=== PATIENT | male | born 1990 | race Two or more races ===

== ENCOUNTER 2016-07-26 00:18 | Inpatient (IN) | payer MEDICAID ==
[~2016-07-26] VITALS: Ht 177.8 cm; Wt 113.6 kg
[2016-07-26 01:03] LABS: Basophils # (auto) 0.3 uL; Basophils % (auto) 2.6 % (0.0-2.0); Eosinophils # (auto) 0.1 uL; Eosinophils % (auto) 1.2 % (0.0-7.0); Hematocrit 46.9 % (41.0-53.0); Hemoglobin 15.5 g/dL (13.5-17.5); Lymphocytes # (auto) 2.8 uL; Mean Corpuscular Hemoglobin 28.1 pg (28.0-32.0); Mean Platelet Volume 7.5 fL (7.4-10.4); Monocytes % (auto) 9.9 % (0.0-12.0); Neutrophils # (auto) 5.9 uL; Neutrophils % (auto) 58.3 % (37.0-80.0); Platelet Count (auto) 360 10^3/uL (140-450); Red Cell Distribution Width 12.7 % (11.6-16.0); White Blood Cell 10.1 10^3/uL (4.4-10.8)
[2016-07-26 01:12] LABS: Urine Bilirubin Negative (Negative); Urine Color Yellow (Yellow); Urine Glucose Normal (Normal); Urine Ketone Negative (Negative); Urine Mucus MANY (None Seen); Urine Nitrite Negative (Negative); Urine RBC 19 /hpf (0 - 3); Urine Squamous Epithelial Cell FEW /hpf (<5); Urine pH 5.5 (5.0-8.0)
[2016-07-26 01:14] LABS: Urine Blood 1+ /uL (Negative)
[2016-07-26 01:17] LABS: Albumin 4.3 g/dL (3.4-5.0); Potassium 3.7 mmol/L (3.5-5.1)
[2016-07-26 01:25] LABS: Bilirubin, Total 0.7 mg/dL (0.2-1.0)
[2016-07-26] MEDS ORDERED: HYDROmorphone HCL 2 MG/ML VL IV ONE (04:30)
[2016-07-26] MEDS ORDERED: ONDANSETRON HCL 4 MG/2 ML VIAL IV ONE (04:30)
[2016-07-26] MEDS ORDERED: KETOROLAC TROMETH 30 MG/ML 1ML VIAL IV ONE ×2 (04:30→10:00)
[2016-07-26] MEDS ORDERED: SODIUM CHLORIDE 0.9% 1,000 ML IV ONE (06:14)
[2016-07-26] MEDS ORDERED: ONDANSETRON HCL 4 MG/2 ML VIAL IV PRN (06:15)
[2016-07-26] MEDS ORDERED: ACETAMINOPHEN 325 MG TAB PO PRN (06:15)
[2016-07-26] MEDS ORDERED: TEMAZEPAM 15 MG CAP PO PRN (06:15)
[2016-07-26] MEDS ORDERED: NITROGLYCERIN 0.4 MG SL TAB SL PRN (06:15)
[2016-07-26] MEDS ORDERED: MORPHINE SULF INJ 2 MG/ML SYRINGE 1ML IV PRN (06:15)
[2016-07-26] MEDS: MORPHINE SULF INJ 2 MG/ML SYRINGE 1ML IV PRN ×4 (08:18→21:50)
[2016-07-26] MEDS: MULTIPLE VITAMIN TAB PO SCH (09:25)
[2016-07-26] MEDS: FAMOTIDINE 20 MG TAB PO SCH ×2 (09:26→21:18)
[2016-07-26] MEDS ORDERED: ENOXAPARIN SOD 40 MG/0.4 ML SYRINGE SC SCH (10:00)
[2016-07-26] MEDS ORDERED: ZINC SULFATE 220 MG CAP PO SCH (10:00)
[2016-07-26] MEDS ORDERED: ASCORBIC ACID 500 MG TAB PO SCH (10:00)
[2016-07-26] MEDS ORDERED: ENOXAPARIN SOD 30 MG/0.3 ML SYRINGE SC SCH (10:00)
[2016-07-26] MEDS: SODIUM CHLORIDE 0.9% 1,000 ML IV SCH ×5 (10:17→23:08)
[2016-07-26 10:35] VITALS: BP 99/45
[2016-07-26 12:00] VITALS: BP 99/45
[2016-07-26 14:27] LABS: INR 1.06 (0.9-1.15); Partial Thromboplastin Time 31.9 sec (22.64-33.71); Prothrombin Time 11.4 sec (9.37-12.3)
[2016-07-26 17:00] VITALS: BP 129/65
[2016-07-26] MEDS: TAMSULOSIN HYDROCHLORIDE 0.4 MG CAP PO SCH (17:45)
[2016-07-26 21:30] VITALS: BP 101/46
[2016-07-27] MEDS: SODIUM CHLORIDE 0.9% 1,000 ML IV SCH ×4 (03:28→16:28)
[2016-07-27 05:00] VITALS: BP 118/75
[2016-07-27] MEDS: MORPHINE SULF INJ 2 MG/ML SYRINGE 1ML IV PRN ×2 (05:26→10:59)
[2016-07-27 06:31] LABS: Basophils # (auto) 0 uL; Basophils % (auto) 0.6 % (0.0-2.0); Eosinophils # (auto) 0.1 uL; Eosinophils % (auto) 1.5 % (0.0-7.0); Hemoglobin 14.2 g/dL (13.5-17.5); Lymphocytes # (auto) 1.7 uL; Lymphocytes % (auto) 26.6 % (10.0-50.0); Mean Platelet Volume 7.9 fL (7.4-10.4); Monocytes # (auto) 0.6 uL; Monocytes % (auto) 9.2 % (0.0-12.0); Neutrophils # (auto) 3.9 uL; Neutrophils % (auto) 62.1 % (37.0-80.0); Platelet Count (auto) 265 10^3/uL (140-450); Red Cell Distribution Width 12.7 % (11.6-16.0); White Blood Cell 6.4 10^3/uL (4.4-10.8)
[2016-07-27 07:05] LABS: Albumin 3.4 g/dL (3.4-5.0); BUN/Creatinine Ratio 10.3; Bilirubin, Total 0.8 mg/dL (0.2-1.0); Potassium 3.5 mmol/L (3.5-5.1); Total Protein 6.8 g/dL (6.4-8.2)
[2016-07-27 08:53] VITALS: BP 119/74
[2016-07-27] MEDS: MULTIPLE VITAMIN TAB PO SCH (10:00)
[2016-07-27] MEDS: FAMOTIDINE 20 MG TAB PO SCH (10:00)
[2016-07-27] MEDS ORDERED: PROPOFOL 10 MG/ML 20 ML IV ONE ×2 (11:46→12:09)
[2016-07-27] MEDS ORDERED: fentaNYL CITRATE 100 MCG/2 ML VL ONE (11:46)
[2016-07-27] MEDS ORDERED: MIDAZOLAM HCL 1MG/1ML-2 ML VIAL ONE (11:46)
[2016-07-27 12:25] VITALS: BP 137/71
[2016-07-27] MEDS ORDERED: LEVOFLOXACIN 500MG 100 ML IV ONE (13:52)
[2016-07-27] MEDS ORDERED: ONDANSETRON HCL 4 MG/2 ML VIAL ONE (14:18)
[2016-07-27] MEDS ORDERED: METOCLOPRAMIDE HCL 5MG/ml INJ 2ml VIAL IV ONE (14:45)
[2016-07-27] MEDS ORDERED: fentaNYL CITRATE 100 MCG/2 ML VL IV ONE (15:00)
[2016-07-27 16:32] VITALS: BP 126/79
[2016-07-27] MEDS: TAMSULOSIN HYDROCHLORIDE 0.4 MG CAP PO SCH (18:12)
== END 2016-07-27 18:55 | disposition home or self-care (01) | DRG 465 ==
LOC: ER 00:18 → OVERFLOW 00:19 → EAST 10:41
PROVIDERS: ADMIT Emergency Medicine; ATTEND Internal Medicine
PROC: 0T778DZ Dilation of Left Ureter with Intraluminal Device, Via Natural or Artificial Opening Endoscopic (ICD-10-PCS; principal; 2016-07-27 13:56)
DX: N13.2 Hydronephrosis with renal and ureteral calculous obstruction (principal); K76.0 Fatty (change of) liver, not elsewhere classified; E66.9 Obesity, unspecified; Z68.35 Body mass index [BMI] 35.0-35.9, adult; Z88.0 Allergy status to penicillin
CPT/HCPCS: 36415; 74000; 74176; 76000; 80053; 81001; 83690; 85025; 85610; 85730; 87081; 93005; 96361; 96374; 96375; J1885; J1956; J2250; J2405; J2704

== ENCOUNTER 2016-07-28 03:43 | Emergency (ER) | payer OTHER, MEDICAID ==
[~2016-07-28] VITALS: Ht 177.8 cm; Wt 112.5 kg
[2016-07-28 04:40] LABS: Basophils # (auto) 0 uL; Basophils % (auto) 0.4 % (0.0-2.0); Eosinophils # (auto) 0.1 uL; Eosinophils % (auto) 1.3 % (0.0-7.0); Hematocrit 43.6 % (41.0-53.0); Hemoglobin 14.9 g/dL (13.5-17.5); Lymphocytes # (auto) 2.2 uL; Lymphocytes % (auto) 25.9 % (10.0-50.0); Mean Corpuscular Hemoglobin 29.2 pg (28.0-32.0); Mean Corpuscular Hgb Conc. 34.3 g/dL (32.0-36.0); Mean Corpuscular Volume 85.3 fL (80.0-100.0); Mean Platelet Volume 7.7 fL (7.4-10.4); Monocytes # (auto) 0.7 uL; Monocytes % (auto) 8.7 % (0.0-12.0); Neutrophils # (auto) 5.3 uL; Neutrophils % (auto) 63.7 % (37.0-80.0); Platelet Count (auto) 316 10^3/uL (140-450); Red Cell Distribution Width 13.9 % (11.6-16.0); White Blood Cell 8.3 10^3/uL (4.4-10.8)
[2016-07-28 05:03] LABS: Potassium 3.3 mmol/L (3.5-5.1)
[2016-07-28 05:11] LABS: Albumin 3.8 g/dL (3.4-5.0); BUN/Creatinine Ratio 13.7; Bilirubin, Total 0.5 mg/dL (0.2-1.0); Calcium 8.5 mg/dL (8.5-10.1); Total Protein 7.4 g/dL (6.4-8.2)
[2016-07-28 05:12] LABS: Urine Bilirubin Negative (Negative); Urine Color Red (Yellow); Urine Glucose Normal (Normal); Urine Ketone Negative (Negative); Urine Mucus FEW (None Seen); Urine Nitrite Negative (Negative); Urine RBC 2570 /hpf (0 - 3); Urine Squamous Epithelial Cell FEW /hpf (<5); Urine pH 6.5 (5.0-8.0)
[2016-07-28 05:20] LABS: Urine Blood 3+ /uL (Negative)
[2016-07-28] MEDS ORDERED: HYDROmorphone HCL 2 MG/ML VL IV ONE (05:45)
[2016-07-28] MEDS ORDERED: ONDANSETRON HCL 4 MG/2 ML VIAL IV ONE (05:45)
[2016-07-28] MEDS ORDERED: SODIUM CHLORIDE 0.9% 1,000 ML IV ONE (06:40)
[2016-07-28] MEDS ORDERED: CIPROFLOXACIN HCL 500 MG TAB PO ONE (07:00)
[2016-07-28 07:15] VITALS: BP 127/75
== END 2016-07-28 07:54 | disposition home or self-care (01) ==
LOC: ER 03:43
DX: N20.0 Calculus of kidney (principal); N39.0 Urinary tract infection, site not specified; Z88.0 Allergy status to penicillin
CPT/HCPCS: 36415; 74176; 80053; 81001; 85025; 96361; 96374; 96375; 99285; J1170; J2405; J7030

== ENCOUNTER 2016-09-22 20:29 | Emergency (ER) | payer MEDICAID ==
[~2016-09-22] VITALS: Ht 177.8 cm; Wt 111.1 kg
[2016-09-22 20:58] VITALS: BP 149/82
[2016-09-22 21:39] LABS: Urine Bilirubin Negative (Negative); Urine Color Yellow (Yellow); Urine Glucose Normal (Normal); Urine Ketone Negative (Negative); Urine Mucus FEW (None Seen); Urine Nitrite Negative (Negative); Urine RBC 1496 /hpf (0 - 3); Urine Squamous Epithelial Cell FEW /hpf (<5); Urine Urobilinogen Normal (Negative)
[2016-09-22 21:42] LABS: Basophils # (auto) 0.1 uL; Basophils % (auto) 0.7 % (0.0-2.0); CONDITION Y; Eosinophils # (auto) 0.1 uL; Eosinophils % (auto) 0.5 % (0.0-7.0); Hematocrit 46.3 % (41.0-53.0); Hemoglobin 15.7 g/dL (13.5-17.5); Lymphocytes # (auto) 1.8 uL; Mean Corpuscular Hemoglobin 29.4 pg (28.0-32.0); Mean Corpuscular Volume 86.5 fL (80.0-100.0); Mean Platelet Volume 7.7 fL (7.4-10.4); Monocytes # (auto) 0.9 uL; Monocytes % (auto) 6.8 % (0.0-12.0); Neutrophils # (auto) 10.7 uL; Platelet Count (auto) 369 10^3/uL (140-450); Red Cell Distribution Width 14.4 % (11.6-16.0); White Blood Cell 13.5 10^3/uL (4.4-10.8)
[2016-09-22 21:45] LABS: Urine Blood 3+ /uL (Negative)
[2016-09-22 21:54] LABS: INR 1.05 (0.9-1.15); Partial Thromboplastin Time 31.4 sec (22.64-33.71); Prothrombin Time 11.4 sec (9.37-12.3)
[2016-09-22 22:27] LABS: Albumin 3.9 g/dL (3.4-5.0); BUN/Creatinine Ratio 15.8; Calcium 8.6 mg/dL (8.5-10.1)
[2016-09-22 22:30] LABS: Bilirubin, Total 0.6 mg/dL (0.2-1.0); Total Protein 8.4 g/dL (6.4-8.2)
== END 2016-09-23 03:37 | disposition left against medical advice (07) ==
LOC: ER 20:41
DX: R10.32 Left lower quadrant pain (principal); Z53.21 Procedure and treatment not carried out due to patient leaving prior to being seen by health care provider
CPT/HCPCS: 36415; 80053; 81001; 82150; 83690; 85025; 85610; 85730

== ENCOUNTER 2017-06-01 17:31 | Emergency (ER) | payer MEDICAID ==
[~2017-06-01] VITALS: Ht 177.8 cm; Wt 112.0 kg
[2017-06-01 19:15] VITALS: BP 151/92
== END 2017-06-01 19:59 | disposition home or self-care (01) ==
LOC: ER 17:31
DX: F41.9 Anxiety disorder, unspecified (principal); Z88.0 Allergy status to penicillin
CPT/HCPCS: 93005

== ENCOUNTER → 2017-10-24 | Emergency (ER) | payer MEDICAID | END | disposition left against medical advice (07) | LOC: ER 23:03 | DX: R11.10 Vomiting, unspecified (principal); Z53.21 Procedure and treatment not carried out due to patient leaving prior to being seen by health care provider ==

== ENCOUNTER 2017-10-30 23:09 | Emergency (ER) | payer MEDICAID ==
[~2017-10-30] VITALS: Ht 175.3 cm; Wt 105.7 kg
[2017-10-30 23:52] LABS: Basophils # (auto) 0.1 uL; Basophils % (auto) 1.2 % (0.0-2.0); Eosinophils # (auto) 0.1 uL; Eosinophils % (auto) 0.9 % (0.0-7.0); Hematocrit 42.5 % (41.0-53.0); Hemoglobin 14.7 g/dL (13.5-17.5); Lymphocytes # (auto) 1.4 uL; Lymphocytes % (auto) 14.7 % (10.0-50.0); Mean Corpuscular Hemoglobin 29.6 pg (28.0-32.0); Mean Corpuscular Hgb Conc. 34.5 g/dL (32.0-36.0); Mean Corpuscular Volume 85.9 fL (80.0-100.0); Monocytes # (auto) 0.8 uL; Monocytes % (auto) 7.9 % (0.0-12.0); Neutrophils # (auto) 7.4 uL; Neutrophils % (auto) 75.3 % (37.0-80.0); Nucleated Red Blood Cells % 0.1 %; Platelet Count (auto) 363 10^3/uL (140-450); Red Blood Cells 4.94 10^6/uL (4.5-5.90); Red Cell Distribution Width 13.8 % (11.8-14.3); White Blood Cell 9.8 10^3/uL (4.4-10.8)
[2017-10-31 00:08] LABS: Partial Thromboplastin Time 29.6 sec (23.78-33.04); Prothrombin Time 10.7 sec (9.27-12.13)
[2017-10-31 00:20] LABS: Albumin 3.8 g/dL (3.4-5.0); Calcium 8.4 mg/dL (8.5-10.1); Magnesium 2.3 mg/dL (1.6-2.6); Potassium 3.6 mmol/L (3.5-5.1)
[2017-10-31 00:23] LABS: Bilirubin, Total 0.4 mg/dL (0.2-1.0)
[2017-10-31 02:04] LABS: Urine Bacteria FEW /hpf (None Seen); Urine Blood Negative /uL (Negative); Urine Mucus FEW (None Seen); Urine Specific Gravity 1.029 (1.001-1.035); Urine WBC 14 /hpf (0 - 3)
[2017-10-31 02:23] LABS: Alcohol, Urine < 3.0 mg/dL (0-5); Amphetamine Screen, Urine NEGATIVE (NEGATIVE); Barbiturate Scree,Urine NEGATIVE (NEGATIVE); Benzodiazephine Screen, Urine NEGATIVE (NEGATIVE); Cannabinoid Screen, Urine POSITIVE (NEGATIVE); Cocaine Screen, Urine NEGATIVE (NEGATIVE); Opiate Scree,Urine NEGATIVE (NEGATIVE); Phencyclidine Screen, Urine NEGATIVE (NEGATIVE)
[2017-10-31] MEDS ORDERED: ONDANSETRON ODT 4 MG TAB PO ONE (04:45)
[2017-10-31] MEDS ORDERED: cefTRIAXone SOD 1,000 MG VL IM ONE (04:45)
[2017-10-31] MEDS ORDERED: PHENAZOPYRIDINE HCL 100 MG TAB PO ONE (04:45)
[2017-10-31 05:04] VITALS: BP 120/90
== END 2017-10-31 05:07 | disposition home or self-care (01) ==
LOC: ER 23:18
DX: N20.0 Calculus of kidney (principal); N39.0 Urinary tract infection, site not specified; M54.5 Low back pain; F41.9 Anxiety disorder, unspecified; Z88.0 Allergy status to penicillin
CPT/HCPCS: 36415; 74176; 80053; 80307; 81001; 82150; 83690; 83735; 85025; 85610; 85730; 96372; 99285; J0696; Q0162

== ENCOUNTER 2017-12-26 08:48 | Inpatient (IN) | payer MEDICAID ==
[~2017-12-26] VITALS: Ht 177.8 cm; Wt 88.5 kg
[2017-12-26] MEDS ORDERED: SODIUM CHLORIDE 0.9% 1,000 ML IV ONE (08:59)
[2017-12-26] MEDS ORDERED: SODIUM CHLORIDE 0.9% 1,000 ML IVB ONE (08:59)
[2017-12-26] MEDS ORDERED: ONDANSETRON HCL 4 MG/2 ML VIAL IV ONE (09:00)
[2017-12-26] MEDS ORDERED: KETOROLAC TROMETH 30 MG/ML 1ML VIAL IV ONE (09:00)
[2017-12-26 09:25] LABS: Basophils # (auto) 0.1 uL; Basophils % (auto) 0.9 % (0.0-2.0); Eosinophils # (auto) 0.1 uL; Eosinophils % (auto) 1.7 % (0.0-7.0); Hematocrit 44.9 % (41.0-53.0); Hemoglobin 15.2 g/dL (13.5-17.5); Lymphocytes # (auto) 2.1 uL; Mean Corpuscular Volume 85.4 fL (80.0-100.0); Monocytes # (auto) 0.6 uL; Monocytes % (auto) 8.5 % (0.0-12.0); Neutrophils # (auto) 4.6 uL; Neutrophils % (auto) 60.9 % (37.0-80.0); Nucleated Red Blood Cells % 0.6 %; Platelet Count (auto) 309 10^3/uL (140-450); Red Blood Cells 5.25 10^6/uL (4.5-5.90); Red Cell Distribution Width 14.2 % (11.8-14.3); White Blood Cell 7.5 10^3/uL (4.4-10.8)
[2017-12-26 09:45] LABS: Albumin 3.7 g/dL (3.4-5.0); BUN/Creatinine Ratio 8.4; Calcium 8.2 mg/dL (8.5-10.1); Potassium 3.9 mmol/L (3.5-5.1)
[2017-12-26 09:47] LABS: Bilirubin, Total 0.4 mg/dL (0.2-1.0); Total Protein 7.8 g/dL (6.4-8.2)
[2017-12-26] MEDS ORDERED: SODIUM CHLORIDE 0.9% 1,000 ML IV SCH ×2 (10:24→15:45)
[2017-12-26] MEDS ORDERED: TEMAZEPAM 15 MG CAP PO PRN (10:30)
[2017-12-26] MEDS ORDERED: NITROGLYCERIN 0.4 MG SL TAB SL PRN (10:30)
[2017-12-26] MEDS ORDERED: ACETAMINOPHEN 500 MG TAB PO PRN (10:30)
[2017-12-26] MEDS ORDERED: ONDANSETRON HCL 4 MG/2 ML VIAL IV PRN (10:30)
[2017-12-26] MEDS ORDERED: LORazepam 0.5 MG TAB PO PRN (10:30)
[2017-12-26] MEDS ORDERED: MORPHINE SULFATE 4 MG/ML SYR/VIAL IV PRN (10:30)
[2017-12-26] MEDS ORDERED: KETOROLAC TROMETH 30 MG/ML 1ML VIAL IV PRN (10:30)
[2017-12-26] MEDS ORDERED: traMADol HCL 50 MG TAB PO PRN (10:30)
[2017-12-26 10:32] LABS: Urine WBC None Seen /hpf (0 - 3)
[2017-12-26 10:48] LABS: Urine Bacteria NONE SEEN /hpf (None Seen); Urine Blood 3+ /uL (Negative); Urine Mucus FEW (None Seen); Urine Specific Gravity 1.019 (1.001-1.035)
[2017-12-26 10:55] LABS: INR 0.97 (0.9-1.15); Partial Thromboplastin Time 28.9 sec (23.78-33.04); Prothrombin Time 10.4 sec (9.27-12.13)
[2017-12-26 13:24] VITALS: BP 116/60
[2017-12-26] MEDS ORDERED: TAMSULOSIN HYDROCHLORIDE 0.4 MG CAP PO ONE (13:30)
[2017-12-26] MEDS ORDERED: MANNITOL FTV 25% 12.5 GM/50 ML 50 ML IV ONE (13:30)
[2017-12-26 17:17] VITALS: BP 105/48
[2017-12-26] MEDS ORDERED: FAMOTIDINE 20 MG TAB PO SCH (22:00)
[2017-12-27] MEDS ORDERED: cefTRIAXone 1GM/10ml IVPUSH 10 ML IV SCH (09:00)
[2017-12-27] MEDS ORDERED: TAMSULOSIN HYDROCHLORIDE 0.4 MG CAP PO SCH (18:00)
== END 2017-12-26 18:11 | disposition left against medical advice (07) | DRG 465 ==
LOC: ER 08:48 → TELE 08:49 → TELE-CENTR 11:36
PROVIDERS: ADMIT Internal Medicine; ATTEND Internal Medicine
DX: N13.2 Hydronephrosis with renal and ureteral calculous obstruction (principal); F41.9 Anxiety disorder, unspecified; R73.9 Hyperglycemia, unspecified; I10 Essential (primary) hypertension; Z83.3 Family history of diabetes mellitus; Z87.442 Personal history of urinary calculi; Z88.0 Allergy status to penicillin
CPT/HCPCS: 36415; 74176; 80053; 81001; 85025; 85610; 85730; 87086; 96361; 96374; 96375; J1885; J2405

== ENCOUNTER 2017-12-27 03:42 | Emergency (ER) | payer MEDICAID ==
[~2017-12-27] VITALS: Ht 172.7 cm; Wt 99.8 kg
[2017-12-27 03:58] VITALS: BP 139/87
== END 2017-12-27 06:48 | disposition left against medical advice (07) ==
LOC: EDBD 03:42 → ER 03:46
DX: R10.9 Unspecified abdominal pain (principal); Z53.21 Procedure and treatment not carried out due to patient leaving prior to being seen by health care provider

== ENCOUNTER 2018-05-07 21:32 | Emergency (ER) | payer MEDICAID ==
[~2018-05-07] VITALS: Ht 177.8 cm; Wt 86.2 kg
[2018-05-08] MEDS ORDERED: HYDROcodone-ACET 10/325MG TAB PO ONE
[2018-05-08 00:08] VITALS: BP 143/85
== END 2018-05-08 00:53 | disposition home or self-care (01) ==
LOC: ER 21:36
DX: S16.1XXA Strain of muscle, fascia and tendon at neck level, initial encounter (principal); S39.012A Strain of muscle, fascia and tendon of lower back, initial encounter; S20.211A Contusion of right front wall of thorax, initial encounter; S30.1XXA Contusion of abdominal wall, initial encounter; V48.5XXA Car driver injured in noncollision transport accident in traffic accident, initial encounter; Z88.0 Allergy status to penicillin; Z87.442 Personal history of urinary calculi; Y93.89 Activity, other specified; Y99.8 Other external cause status; Y92.411 Interstate highway as the place of occurrence of the external cause
CPT/HCPCS: 70450; 71046; 72125; 73502